=== PATIENT | female | born 1990 | race Caucasian/White ===

== ENCOUNTER 2016-12-05 21:38 | Emergency (ER) | payer OTHER ==
[~2016-12-05] VITALS: Ht 157.5 cm; Wt 63.5 kg
--- NOTE | ~2016-12-05 | EKG ---
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
[~2016-12-05 21:38] MED LIST: ADDERALL 20 MG20 M1 PO; ADDERALL XR 3030 MG PO; APAP500 PO; BENTYL 10 MG CA10 M1 PO; CITRATE OF MAG296 ML PO; CLONAZEPAM 0.50.5 M1 PO; COMBIGAN EYE DR10 ML OP; DERMOPLAST SPRA56 ML; GUANFACINE HCL1 MG PO; HYDROCORTISONE30 G9 RECTAL; IBUPROFEN 800800 M1 PO; LANOLIN56 GM; METHOTREXATE 22.5 MG PO; PHENERGAN25 M1 RC; PRENATAL TABLE1 EAC3 PO; PRENATAL VITAM1 EAC5; PROZAC20 MG PO; TRAMADOL 50 MG50 MG PO; TUCKS1 EAC1 TP; ZANTAC 150MG T150 MG PO; ZOFRAN ODT4 MG PO
[2016-12-05] MEDS ORDERED: CYCLOBENZAPRINE5 MG PO (22:07)
[2016-12-05 22:17] LABS: URINE BLOOD 2+ (Negative); URINE COLOR YELLOW; URINE GLUCOSE-RANDOM* NEGATIVE (Negative); URINE KETONES 1+ (Negative); URINE LEUKOCYTES-REFLEX 2+ (Negative); URINE PROTEIN (DIPSTICK) 2+ (Negative); URINE SPECIFIC GRAVITY 1.015 (1.003-1.035)
[2016-12-05 22:20] LABS: ICTOTEST (BILI CONFIRMATORY) Negative (Negative); URINE BILIRUBIN NEGATIVE (Negative)
[2016-12-05 22:26] LABS: HEMATOCRIT 44.3 % (37.0-47.0); HEMOGLOBIN 14.8 gm/dL (12.0-15.0); MCH 30.8 pg (26.0-34.0); MCHC 33.3 g/dL (28.0-37.0); MCV 92.2 fL (80.0-100.0); PLATELET COUNT 235 thou/uL (150-400); RBC 4.81 mil/uL (4.20-5.00); RDW 13.7 % (10.5-14.5); WBC 22.8 thou/uL (4.0-11.0)
[2016-12-05 22:34] LABS: MANUAL DIFF YES
[2016-12-05 22:35] LABS: CREATININE 1.1 mg/dL (0.6-1.0); POTASSIUM 3.6 mmol/L (3.5-5.1)
[2016-12-05 22:39] LABS: CALCIUM 9.3 mg/dL (8.5-10.1)
[2016-12-05 22:41] LABS: CASTS None Seen /LPF (None Seen); CRYSTALS None Seen /LPF (None Seen); SQUAMOUS 0-3 Few /LPF (0-3); URINE RBC 3-10 Few /HPF (0-2); URINE WBC-REFLEX >25 Many /HPF (0-5)
[2016-12-05 22:54] LABS: ABSOLUTE NEUTROPHILS 17.3 thou/uL (1.4-8.2); TOTAL CELL COUNT 100
[2016-12-05 22:57] LABS: ANISOCYTOSIS 1+; POLYCHROMASIA OCCASIONAL
[2016-12-06] MEDS ORDERED: BACTRIM DS TAB1 EACH PO (00:32)
[2016-12-06 00:48] VITALS: BP 128/70
== END 2016-12-06 01:25 | disposition home or self-care (01) ==
LOC: ER 21:38
PROVIDERS: Emergency Medicine
DX: N39.0 Urinary tract infection, site not specified (principal); F17.210 Nicotine dependence, cigarettes, uncomplicated; F10.99 Alcohol use, unspecified with unspecified alcohol-induced disorder